=== PATIENT | male | born 1980 | race Hispanic/Latino ===

== ENCOUNTER 2020-09-15 15:45 | Emergency (ER) | payer SELFPAY ==
[2020-09-15] MEDS ORDERED: Lidocaine 1% (PF) 30 ML VIAL ONE (16:29)
[2020-09-15] MEDS ORDERED: Bupivacaine 0.5% 10 ML VIAL ONE (16:29)
== END 2020-09-15 20:51 | disposition home or self-care (01) ==
LOC: ERS 15:45
DX: S91.211A Laceration without foreign body of right great toe with damage to nail, initial encounter (principal); F17.210 Nicotine dependence, cigarettes, uncomplicated; W22.8XXA Striking against or struck by other objects, initial encounter
CPT/HCPCS: 11760; 96372; J2001; J3490